=== PATIENT | male | born 2000 | race Caucasian/White ===

== ENCOUNTER 2019-01-14 07:10 | Outpatient (CLI) | payer OTHER ==
--- NOTE | 2019-01-14 08:59 | ULT ---
ABDOMINAL ULTRASOUND: HISTORY: Abdominal pain. FINDINGS: Images of the gallbladder show echogenic sludge which appears to move with change in position. No de finite gallstone is seen. The common duct is normal caliber. The liver is enlarged and is echogenic consistent with fatty infiltration. Liver measures up to 21 cm. Pancreas is mostly obscured and not well evaluated. The spleen is enlarged measuring up to 13 cm. The aorta and IVC are obscured by overlying bowel gas. The common duct is also obscured. The exam i s limited due to patient's body habitus. IMPRESSION: 1. Evidence of echogenic sludge within the gallbladder. The technologist describes a negative Rosetta y's sign. 2. Borderline hepatosplenomegaly. 3. Echogenic liver consistent with fatty infiltration. POS: [facility]
== END 2019-01-14 07:11 | disposition home or self-care (01) ==
LOC: BICULT 07:10
PROVIDERS: ATTEND Family Medicine
DX: R10.13 Epigastric pain (principal); R16.2 Hepatomegaly with splenomegaly, not elsewhere classified; K82.8 Other specified diseases of gallbladder
CPT/HCPCS: 76700